=== PATIENT | female | born 1985 | race Caucasian/White ===

== ENCOUNTER 2017-12-23 09:54 | Emergency (ER) | END 2017-12-23 11:11 | disposition home or self-care (01) ==

== ENCOUNTER 2018-01-27 07:55 | Emergency (ER) | END 2018-01-27 09:36 | disposition home or self-care (01) ==

== ENCOUNTER 2018-01-27 23:36 | Inpatient (IN) | END 2018-01-29 22:23 | disposition home or self-care (01) | DRG 743 ==